=== PATIENT | female | born 1955 | race Caucasian/White ===

== ENCOUNTER → 2017-10-06 12:14 | Outpatient (CLI) | payer OTHER, SELFPAY ==
--- NOTE | 2017-10-06 | DI.MG.S_ITS ---
BILATERAL DIGITAL SCREENING MAMMOGRAM 3D/2D WITH CAD: 10/06/2017 CLINICAL: Routine screening. Comparison is made to exams dated: 07/22/2016 mammogram, 06/13/2015 mammogram - [facility], and 06/05/2013 mammogram - [facility]. The tissue of both breasts is heterogeneously dense. This may lower the sensitivity of mammography. Current study was also evaluated with a Computer Aided Detection (CAD) system. No significant masses, calcifications, or other findings are seen in either breast. There has been no significant interval change. IMPRESSION: NEGATIVE There is no mammographic evidence of malignancy. A 1 year screening mammogram is recommended. This exam was interpreted at Station ID: [id number]. NOTE: For mammograms, a report in lay terms will be sent to the patient. Approximately 15% of breast malignancies will not be visualized mammographically. In the management of a palpable breast mass, a negative mammogram must not discourage biopsy of a clinically suspicious lesion. Electronically Signed By: Junior rivas/shelia:10/06/2017 16:14:47 copy to: Kimberli Crowell letter sent: Normal Exam ACR BI-RADS Category 1: Negative 3341F
== END ==
PROVIDERS: Family Provider Family Medicine; PCP Family Medicine; Visit Provider Family Medicine
DX: Z12.31 Encounter for screening mammogram for malignant neoplasm of breast (principal); M81.0 Age-related osteoporosis without current pathological fracture
CPT/HCPCS: 77063; 77067; 77080

== ENCOUNTER → 2017-10-22 12:55 | Outpatient (CLI) | payer OTHER, SELFPAY ==
--- NOTE | 2017-11-04 10:09 | PM.CARDMON.1 ---
[employer] Report Referral & Results Date Patient Seen: 10/22/17 Requesting provider: Kimberli Crowell Indication: Conduction disorder Duration of monitoring (days): 3 Diary information: There were 3 diary entries from the patient associated with sinus rhythm and PACs There were 41 triggered events associated with sinus rhythm, PACs, and PVCs Data: Minimum heart rate identified was 41 beats per minute at 22:55 on 10/22/2017 Maximum heart rate was 120 beats per minute at 09:32 on 10/23/2017 Less than 1% of identified cardiac depolarizations were premature and from either a supraventricular or ventricular origin Impression: No serious dysrhythmia identified. Based on diary entries and triggered events, patient is likely symptomatic of some level of her PACs and/or PVCs. Clinical correlation suggested
== END ==
PROVIDERS: Family Provider Family Medicine; PCP Family Medicine; Visit Provider Family Medicine
DX: I45.9 Conduction disorder, unspecified (principal)
CPT/HCPCS: 0296T; 0298T

== ENCOUNTER → 2018-11-09 10:04 | Outpatient (CLI) | payer OTHER, SELFPAY ==
--- NOTE | 2018-11-09 | DI.MG.S_ITS ---
BILATERAL DIGITAL SCREENING MAMMOGRAM 3D/2D WITH CAD: 11/09/2018 CLINICAL: Routine screening. Comparison is made to exams dated: 10/06/2017 mammogram, 07/22/2016 mammogram, and 06/13/2015 mammogram - [facility]. The tissue of both breasts is heterogeneously dense. This may lower the sensitivity of mammography. Current study was also evaluated with a Computer Aided Detection (CAD) system. There are benign calcifications in both breasts. No significant masses, calcifications, or other findings are seen in either breast. There has been no significant interval change. IMPRESSION: There is no mammographic evidence of malignancy. A 1 year screening mammogram is recommended. This exam was interpreted at Station ID: [id number]. NOTE: For mammograms, a report in lay terms will be sent to the patient. Approximately 15% of breast malignancies will not be visualized mammographically. In the management of a palpable breast mass, a negative mammogram must not discourage biopsy of a clinically suspicious lesion. Electronically Signed By: Jerry richardson/shelia:11/09/2018 11:05:05 letter sent: Normal Exam ACR BI-RADS Category 2: Benign Finding(s) 3342F
== END ==
PROVIDERS: Family Provider Family Medicine; PCP Family Medicine; Visit Provider Family Medicine
DX: Z12.31 Encounter for screening mammogram for malignant neoplasm of breast (principal)
CPT/HCPCS: 77063; 77067

== ENCOUNTER → 2020-02-05 14:51 | Outpatient (CLI) | payer OTHER, SELFPAY ==
--- NOTE | 2020-02-05 | DI.MG.S_ITS ---
BILATERAL DIGITAL SCREENING MAMMOGRAM 3D/2D WITH CAD: 02/05/2020 CLINICAL: Routine screening. Comparison is made to exams dated: 11/09/2018 mammogram, 10/06/2017 mammogram, and 07/22/2016 mammogram - [facility]. The tissue of both breasts is heterogeneously dense. This may lower the sensitivity of mammography. Current study was also evaluated with a Computer Aided Detection (CAD) system. There are benign calcifications in both breasts. No significant masses, calcifications, or other findings are seen in either breast. There has been no significant interval change. IMPRESSION: BENIGN There is no mammographic evidence of malignancy. A 1 year screening mammogram is recommended. This exam was interpreted at Station ID: [id number]. NOTE: For mammograms, a report in lay terms will be sent to the patient. Approximately 15% of breast malignancies will not be visualized mammographically. In the management of a palpable breast mass, a negative mammogram must not discourage biopsy of a clinically suspicious lesion. Electronically Signed By: Cortez perez/shelia:02/05/2020 16:58:58 letter sent: Normal Exam ACR BI-RADS Category 2: Benign Finding(s) 3342F
== END ==
PROVIDERS: Family Provider Family Medicine; PCP Family Medicine; Referring Provider Family Medicine; Visit Provider Family Medicine
DX: Z12.31 Encounter for screening mammogram for malignant neoplasm of breast (principal); M81.0 Age-related osteoporosis without current pathological fracture; Z78.0 Asymptomatic menopausal state; E07.9 Disorder of thyroid, unspecified; Z82.62 Family history of osteoporosis
CPT/HCPCS: 77063; 77067; 77080

== ENCOUNTER → 2021-02-25 11:34 | Outpatient (CLI) | payer OTHER, SELFPAY ==
--- NOTE | 2021-02-25 11:36 | DI.MG.S_ITS ---
BILATERAL DIGITAL SCREENING MAMMOGRAM 3D/2D WITH CAD: 02/25/2021 CLINICAL: Routine screening. Comparison is made to exams dated: 02/05/2020 mammogram, 11/09/2018 mammogram, and 10/06/2017 mammogram - [facility]. The tissue of both breasts is heterogeneously dense. This may lower the sensitivity of mammography. Current study was also evaluated with a Computer Aided Detection (CAD) system. There are benign calcifications in both breasts. No significant masses, calcifications, or other findings are seen in either breast. There has been no significant interval change. IMPRESSION: BENIGN There is no mammographic evidence of malignancy. A 1 year screening mammogram is recommended. This exam was interpreted at Station ID: [id number]. NOTE: For mammograms, a report in lay terms will be sent to the patient. Approximately 15% of breast malignancies will not be visualized mammographically. In the management of a palpable breast mass, a negative mammogram must not discourage biopsy of a clinically suspicious lesion. Electronically Signed By: Isma Nixon M.D., jr/shelia:02/25/2021 11:55:02 letter sent: Normal Exam ACR BI-RADS Category 2: Benign Finding(s) 3342F
== END ==
PROVIDERS: Family Provider Family Medicine; PCP Family Medicine; Referring Provider Family Medicine; Visit Provider Family Medicine
DX: Z12.31 Encounter for screening mammogram for malignant neoplasm of breast (principal)
CPT/HCPCS: 77063; 77067

== ENCOUNTER 2022-07-11 19:19 | Emergency (ER) | payer MEDICARE, OTHER, SELFPAY ==
[2022-07-11 19:27] VITALS: BP 182/77; PULSE 62; RESP 18; TEMP 37.1; O2SAT 97; BMI 24.4
--- NOTE | 2022-07-11 19:34 | ED.WOUNDLAC ---
HPI - Wound/Laceration General Chief Complaint: Wound/Laceration Stated Complaint: cut lt hand w a core cutter Time Seen by Provider: 07/11/22 19:28 Source: patient Mode of arrival: Ambulatory History of Present Illness HPI narrative: 66-year-old female nonsmoker with noncontributory medical history presents at the request of the walk-in clinic for help with repair of a laceration of her left index finger suffered just prior to arrival. She was using a rotary saw that got loosen resulted in a laceration of her finger, she denies any numbness, tingling or weakness. She states it is bleeding a fair amount and does admit that she took a few aspirin prior to presenting to the walk-in clinic. She has full range of motion and strength. She denies other injury and is otherwise well. There were attempts to numb the patient's finger in the walk-in clinic that were unsuccessful and she was sent here for definitive care. Tetanus was updated at the walk-in clinic. Related Data Home Medications Medication Instructions Recorded Confirmed Calcium/Vitamin D (#CALCIUM + D 1 tab PO Q DAY ##0 10/01/11 12/22/21 600 MG-200 IU) VITAMIN D (Vitamin D3) 2,000 unit PO QDAY ##0 11/25/12 12/22/21 Previous Rx's Medication Instructions Recorded albuterol sulfate 90 mcg/actuation See Rx Instructions inhalation 12/30/20 aerosol inhaler Q4-6H PRN shortness of breath or wheezing #8.5 grams fluticasone propionate 110 1 inh inhalation BID PRN asthma 12/22/21 mcg/actuation HFA aerosol inhaler #12 grams (Flovent HFA) levothyroxine 75 mcg tablet See Rx Instructions .Route 03/24/22 .COMPLEX #90 tabs montelukast 10 mg tablet See Rx Instructions .Route 07/01/22 .COMPLEX #90 tabs Allergies Allergy/AdvReac Type Severity Reaction Status Date / Time ibuprofen [IBUPROFEN] Allergy Mild LIP Unverified 12/22/21 09:36 SWELLING Review of Systems Review of Systems Narrative: GENERAL: Denies chills, fatigue, malaise, fever, sweats. HEENT: Denies sinus pain, ear pain, sore throat, difficulty swallowing, dizziness. RESPIRATORY: Denies dyspnea, cough, wheezing, hemoptysis, sputum. CARDIOVASCULAR: Denies chest pain, palpitations, orthopnea, edema, GASTROINTESTINAL: Denies nausea, vomiting, abdominal pain, diarrhea, constipation, melena. : Denies dysuria, frequency, incontinence, hematuria, urinary retention. MUSCULOSKELETAL: denies weakness, joint pain, or bony pain SKIN: See HPI NEUROLOGIC: Denies weakness, headache, numbness, change in speech, confusion, seizures, incoordination. PSYCHIATRIC: No concerning psychosocial issues. 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) Hypothyroidism (10/17/12) Osteopenia (10/17/12) Osteoporosis Skin cancer Tinnitus Vitamin D deficiency (05/12/13) Surgical History Status post arthroscopy (~04/2013) Status post hysterectomy (~1988) Family History Brother Hyperlipidemia Asthma Child Eating disorder Asthma Father Hyperlipidemia Hypertension CVA (cerebral infarction) Mother Osteoporosis CVA (cerebral infarction) Hyperlipidemia Hypertension Diabetes mellitus Social History Smoking Status: Never smoker Smoking Status: Never smoker alcohol intake frequency: holidays/special occasions only Substance Use Type: does not use Exam Narrative Exam Narrative: GEN: AOx3 and in mild distress EYES: Pupils are equal, round, and reactive to light and accommodation. Extraoccular muscles are intact bilaterally. There is no subconjunctival hemorrhage or exudate. CHEST: Lungs are clear to auscultation bilaterally and free of wheezes, rales, or rhonchi. Heart rate is regular rhythm, there are no murmurs, clicks, rubs, or gallops. There is no chest wall tenderness. ABD: Abdomen is soft and nontender. There is no guarding or rebound. Bowel sounds are normal in all 4 quadrants. There is no mass or organomegaly. EXT: Full painless ROM of all extremities with no loss of sensation or strength. SKIN: 1.5 cm deep, slightly irregular flap laceration on volar lateral aspect of left index finger distal to the DIPJ. There is no nail bed or nail fold involvement. There are few areas of active bleeding including, oddly enough the flap itself. Hemostasis achieved with a few deep sutures and then closure with 8 sutures in the skin. There is no bony involvement, no tendon involvement. Initial Vital Signs Initial Vital Signs: Vital Signs Temperature 98.8 F 07/11/22 19:27 Pulse Rate 62 07/11/22 19:27 Respiratory Rate 18 07/11/22 19:27 Blood Pressure 182/77 H 07/11/22 19:27 Pulse Oximetry 97 07/11/22 19:27 Oxygen Delivery Method Room Air 07/11/22 19:27 Procedures Laceration Repair Laceration 1: Site: hand Side (If applicable): left Size (cm): 1.5 Description: flap and irregular Depth: involves muscle layer Pre-repair: wound explored, irrigated extensively and cleansed with chlorhexadine Skin layer closed with: nylon Skin layer suture size: 5-0 Number of sutures: 8 Technique: simple, interrupted Subcutaneous layer closed with: vicryl Subcutaneous layer suture size: 5-0 Number of sutures: 2 Technique: simple, interrupted Nerve Block Nerve Block 1: Time out performed: Yes Local Anesthetic: lidocaine 2% Amount of anesthesia used (mL): 4 Side: left Nerve Blocks: digital Procedure Successful: Yes Patient Tolerated Procedure: Well Course Orders Ordered: Discontinued Medications Lidocaine HCl (Lidocaine 2% Inj Sdv 5ml) 5 ml INJ INTRA-OP ONE Stop: 07/11/22 20:16 Last Admin: 07/11/22 20:43 Dose: 5 ml Documented By: BROOKE Vital Signs Vital signs: Vital Signs - 8 hr 07/11/22 19:27 Temperature 98.8 F Pulse Rate 62 Respiratory Rate 18 Blood Pressure 182/77 H Pulse Oximetry 97 Oxygen Delivery Method Room Air MDM - Wound/Laceration MDM Narrative Medical decision making narrative: [66] year old patient presents with laceration to left index finger Multiple etiologies for patient's symptoms considered including, but not limited to: [Laceration, foreign body involvement, tendon involvement versus other] Prior Charts reviewed in our EMR Primary Historian: patient Anesthesia achieved with digital block, finger soaked, cleansed with chlorhexidine, hemostasis achieved with 2 buried Vicryl sutures and a few deep biting nylon sutures, 8 nylon in the skin in total. Tetanus had been updated prior to her arrival. Low likelihood of infection, no antibiotics needed at this point in time. Follow-up instructions given, return precautions discussed, questions answered to her apparent satisfaction Patient's symptoms improved over duration of stay with above-stated therapies. Findings and discharge diagnosis discussed with patient/family followed by verbalization of understanding Return precautions discussed with patient/family whom verbalize understanding of diagnosis and plan Discharge Plan Departure Patient Disposition: Home Clinical Impression: Finger laceration Instructions: DI for Laceration Repair Activity Restrictions/Additional Instructions: *You have been diagnosed with [8 sutures left index finger laceration ] *What to do: *Please continue to take your regular medications as directed. * Please keep the wound clean and dry to the best of your ability. Please monitor for signs of infection such as redness to the skin or increasing pain. Have the sutures/leisa removed by your doctor in about 10 days. If you are unable to get into your doctor, we would be happy to remove the sutures/leisa in that same timeframe. *If you do not have a primary care provider please contact the [facility] Resource line at [phone]. They will ask some questions about your medical history and help get you set up with a doctor in the community. *Return to Emergency Department if you should have any new, worsening or concerning symptoms, such as [fever greater than 101 F, shaking chills, worsening pain, persistent vomiting or other bothersome symptoms] Prescriptions: No Action Calcium/Vitamin D (#CALCIUM + D 600 MG-200 IU) 1 tab PO Q DAY Qty: 0 VITAMIN D (Vitamin D3) 2,000 unit PO QDAY Qty: 0 albuterol sulfate 90 mcg/actuation HFA aerosol inhaler See Rx Instructions INHALATION Q4-6H PRN (Reason: shortness of breath or wheezing) Qty: 8.5 2RF Rx Instructions: Administer 1-2 puffs every 4-6 hours as needed for shortness of breath or wheezing. levothyroxine 75 mcg tablet See Rx Instructions .ROUTE .COMPLEX Qty: 90 0RF Dose Instruction: take 1 tablet by mouth once daily Rx Instructions: take 1 tablet by mouth once daily montelukast 10 mg tablet See Rx Instructions .ROUTE .COMPLEX Qty: 90 0RF Dose Instruction: take 1 tablet by mouth once daily Rx Instructions: take 1 tablet by mouth once daily fluticasone propionate [Flovent HFA] 110 mcg/actuation HFA aerosol inhaler 1 inh inhalation BID PRN (Reason: asthma) Qty: 12 3RF Rx Instructions: as discussed trial before hikes and other exertion once to twice daily Referrals: Miscellaneous,Doctor, MD [Primary Care Provider] - Stand Alone Forms: Patient Portal/API
[2022-07-11] MEDS: LIDOCAINE 2% INJ SDV 5ML 5 ML INJ (20:43)
== END 2022-07-11 20:52 | disposition home or self-care (01) ==
PROVIDERS: Emergency Provider Emergency Medicine; Family Provider Family Medicine
DX: S61.211A Laceration without foreign body of left index finger without damage to nail, initial encounter (principal); W27.0XXA Contact with workbench tool, initial encounter
CPT/HCPCS: 13131; 99283

== ENCOUNTER 2024-05-05 14:55 | Emergency (ER) | payer MEDICARE, OTHER, SELFPAY ==
[2024-05-05 15:17] VITALS: BP 162/79; PULSE 64; RESP 16; TEMP 36.2; O2SAT 99; BMI 23.6
== END 2024-05-05 19:31 | disposition left against medical advice (07) ==
PROVIDERS: Emergency Provider Emergency Medicine; Family Provider Family Medicine
DX: R51.9 Headache, unspecified (principal)
CPT/HCPCS: 99281